=== PATIENT | male | born 1980 | race African-American/Black ===

== ENCOUNTER 2019-01-18 19:06 | Emergency (ER) | payer SELFPAY ==
[~2019-01-18] VITALS: Ht 175.3 cm; Wt 70.3 kg
[2019-01-18 19:21] VITALS: BP 111/65
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
[2019-01-18] MEDS ORDERED: KETOROLAC TROMETHAMINE INJ 60 MG/2 ML VIAL IM ONE ×2 (19:42→20:00)
== END 2019-01-18 20:04 | disposition home or self-care (01) ==
LOC: ER 19:10
DX: S16.1XXA Strain of muscle, fascia and tendon at neck level, initial encounter (principal); S20.211A Contusion of right front wall of thorax, initial encounter; V49.59XA Passenger injured in collision with other motor vehicles in traffic accident, initial encounter; Y93.89 Activity, other specified; Y92.488 Other paved roadways as the place of occurrence of the external cause; Y99.8 Other external cause status
CPT/HCPCS: 96372; 99283; J1885

== ENCOUNTER 2020-01-16 14:45 | Emergency (ER) | payer MEDICAID, OTHER ==
[~2020-01-16] VITALS: Ht 175.3 cm; Wt 72.6 kg
[2020-01-16 14:51] VITALS: BP 143/80
== END 2020-01-16 15:13 | disposition home or self-care (01) ==
LOC: ER 14:50
DX: R43.8 Other disturbances of smell and taste (principal); J45.909 Unspecified asthma, uncomplicated; Z91.018 Allergy to other foods; Z91.013 Allergy to seafood; Z87.898 Personal history of other specified conditions

== ENCOUNTER 2020-09-16 14:18 | Emergency (ER) | payer OTHER ==
[~2020-09-16] VITALS: Ht 175.3 cm; Wt 72.6 kg
[2020-09-16 14:31] VITALS: BP 130/79
--- NOTE | 2020-09-16 15:02 | NUR ---
Patient discharged to home in stable condition. Written and verbal after care instructions given. Patient verbalizes understanding of instruction.
== END 2020-09-16 15:02 | disposition home or self-care (01) ==
LOC: ER 14:22
DX: R50.9 Fever, unspecified (principal); R05 Cough; R06.02 Shortness of breath; Z20.828 Contact with and (suspected) exposure to other viral communicable diseases; J45.909 Unspecified asthma, uncomplicated; Z91.018 Allergy to other foods; Z91.013 Allergy to seafood

== ENCOUNTER 2021-01-10 05:23 | Emergency (ER) | payer OTHER ==
[~2021-01-10] VITALS: Ht 175.3 cm; Wt 72.6 kg
--- NOTE | 2021-01-10 05:30 | NUR ---
pt bibself c/o sob, worse when laying flat. Pt aaox4 breathing evenly and unlabored. Pt skin warm, dry, and intact. Upon assessment pt has expiratory wheezes in rt and left lower lung lobes. Pt vss. Pt attached to monitor and pox. pt given blanket and call light within reach.
--- NOTE | 2021-01-10 06:09 | NUR ---
xray at bedside
[2021-01-10] MEDS ORDERED: ALBUTEROL FS 2.5 MG/3 ML VIAL.NEB ONE (06:12)
[2021-01-10] MEDS ORDERED: predniSONE 20 MG TABLET ONE (06:12)
--- NOTE | 2021-01-10 06:15 | NUR ---
rt at bedside
[2021-01-10] MEDS ORDERED: ALBUTEROL FS 2.5 MG/3 ML VIAL.NEB CONTNEB ONE (06:30)
[2021-01-10] MEDS ORDERED: predniSONE 20 MG TABLET PO ONE (06:30)
[2021-01-10] MEDS ORDERED: PRED20TA PO (06:33)
[2021-01-10] MEDS ORDERED: ALBU8.5H8 INH (06:33)
--- NOTE | 2021-01-10 06:47 | NUR ---
Patient discharged to home in stable condition. Written and verbal after care instructions given. Patient verbalizes understanding of instruction. Pt ambulatory with a steady gait
[2021-01-10 06:52] VITALS: BP 125/72
== END 2021-01-10 06:47 | disposition home or self-care (01) ==
LOC: ER 05:24
DX: J45.901 Unspecified asthma with (acute) exacerbation (principal); Z79.899 Other long term (current) drug therapy
CPT/HCPCS: 71045; 94640 ×2; 99284; J7512

== ENCOUNTER 2021-03-28 00:49 | Emergency (ER) | payer OTHER ==
[~2021-03-28] VITALS: Ht 175.3 cm; Wt 72.6 kg
[~2021-03-28 00:49] MED LIST: ALBU8.5H8 INH; PRED20TA PO
--- NOTE | 2021-03-28 01:00 | NUR ---
PATIENT BIBS FOR C/O WHEEZING FOR THE PAST 2 WEEKS. PATIENT IS A/O X 4, RR EVEN AND UNLABORED, NO SIGNS OF SOB NOTED. PATIENT IS STABLE ON ROOM AIR. PATIENT CONNCETED TO SHIPPING PROCESSOR AND POX. WILL CONTINUE TO MONITOR.
[2021-03-28 01:13] LABS: BASOPHILS % (AUTO) 0.3 % (0.0-2.0); EOSINOPHILS % (AUTO) 5.8 % (0.0-6.0); HEMATOCRIT 43 % (39-51); HEMOGLOBIN 14.3 g/dL (13.5-17.5); LYMPHOCYTES # (AUTO) 3.1 K/uL (0.8-4.8); LYMPHOCYTES % (AUTO) 48.1 % (20.0-44.0); MEAN CORPUSCULAR HGB CONC 34 g/dl (31.0-36.0); MEAN CORPUSCULAR VOLUME 95 fL (80-96); MONOCYTES # (AUTO) 0.5 K/uL (0.1-1.30); MONOCYTES % (AUTO) 7.9 % (2.0-12.0); NEUTROPHILS # (AUTO) 2.4 K/uL (1.8-8.9); NEUTROPHILS % (AUTO) 37.9 % (43.0-81.0); PLATELET COUNT (AUTO) 188 K/uL (150-450); RED BLOOD CELL COUNT(AUTO) 4.48 MIL/uL (4.5-6.0); WHITE BLOOD COUNT (AUTO) 6.4 K/uL (4.3-11.0)
--- NOTE | 2021-03-28 01:18 | NUR ---
X RAY AT BEDSIDE
[2021-03-28] MEDS ORDERED: IPRATROPIUM NEB FS 0.5 MG/2.5 ML AMPUL.NEB ONE (01:22)
[2021-03-28] MEDS ORDERED: ALBUTEROL FS 2.5 MG/3 ML VIAL.NEB ONE (01:22)
[2021-03-28] MEDS ORDERED: IPRATROPIUM NEB FS 0.5 MG/2.5 ML AMPUL.NEB NEB ONE (01:30)
[2021-03-28] MEDS ORDERED: ALBUTEROL FS 2.5 MG/3 ML VIAL.NEB NEB ONE (01:30)
[2021-03-28 01:33] LABS: CALCIUM, SERUM 8.4 mg/dL (8.5-10.1); CHLORIDE 105 mmol/L (98-107); CREATININE 1.2 mg/dL (0.6-1.3); GLUCOSE 98 mg/dL (74-106); POTASSIUM 3.7 mmol/L (3.5-5.1); SODIUM SERUM 138 mmol/L (136-145)
[2021-03-28 01:41] LABS: CARBON DIOXIDE 24 mmol/L (21-32)
[2021-03-28 01:42] LABS: UREA NITROGEN, BLOOD 17 mg/dL (7-18)
--- NOTE | 2021-03-28 01:50 | NUR ---
DR SOLITARIO ON THE PHONE WITH DR ESCAMILLA FOR CARDIAC CONSULT
--- NOTE | 2021-03-28 01:52 | NUR ---
CALLED LAB FOR COVID SWAB.
[2021-03-28] MEDS ORDERED: ENOXAPARIN SODIUM 80 MG/0.8 ML DISP.SYRIN SQ ONE ×2 (02:30→02:37)
--- NOTE | 2021-03-28 02:49 | NUR ---
DR SOLITARIO AT BED SIDE SPEAKING TO THE PT HE'S WILLING TO LEAVE AMA
[2021-03-28 03:01] VITALS: BP 122/70
--- NOTE | 2021-03-28 03:02 | NUR ---
Patient does not wish to proceed with medical care recommended by Dr. Meng. Patient given information related to possible complications, up to and including , which could occur as a result of leaving the hospital at this time. Patient verbalizes understanding of risks involved due to leaving against medical advice. IV Access removed. Patient has signed AMA form.
== END 2021-03-28 03:06 | disposition left against medical advice (07) ==
LOC: ER 00:52
DX: J45.901 Unspecified asthma with (acute) exacerbation (principal); R94.31 Abnormal electrocardiogram [ECG] [EKG]; R05 Cough; Z20.822 Contact with and (suspected) exposure to COVID-19; Z91.018 Allergy to other foods; Z91.013 Allergy to seafood
CPT/HCPCS: 36415; 71045; 80048; 83880; 84484; 85025; 87426; 93005 ×2; 94640; 96372; 99291; C9803; J1650

== ENCOUNTER 2021-04-22 03:20 | Emergency (ER) | payer OTHER ==
[~2021-04-22] VITALS: Ht 175.3 cm; Wt 72.6 kg
--- NOTE | 2021-04-22 03:25 | NUR ---
PATIENT BIBSELF, C/O SOB AND WHEEZING SINCE YESTERADY. PATIENT USES ALBUTEROL INHALER WITH NO RELIEF. PATIENT IS A/O X 4, RR EVEN AND UNLABORED, NO SIGNS OF SOB NOTED. PATIENT CONNECTED TO MONITOR.
[2021-04-22] MEDS ORDERED: PRED50TA PO (03:37)
[2021-04-22] MEDS ORDERED: AZIT250T13 PO (03:37)
[2021-04-22] MEDS ORDERED: IPRA3AMP23 IH (03:37)
--- NOTE | 2021-04-22 03:39 | NUR ---
RT CALLED FOR Tx
[2021-04-22] MEDS ORDERED: ALBUTEROL FS 2.5 MG/3 ML VIAL.NEB ONE ×2 (03:42→04:10)
[2021-04-22] MEDS ORDERED: IPRATROPIUM NEB FS 0.5 MG/2.5 ML AMPUL.NEB ONE ×2 (03:42→04:10)
[2021-04-22] MEDS ORDERED: predniSONE 20 MG TABLET ONE (03:45)
[2021-04-22] MEDS ORDERED: AZITHROMYCIN 250 MG TABLET ONE (03:45)
[2021-04-22] MEDS ORDERED: IPRATROPIUM NEB FS 0.5 MG/2.5 ML AMPUL.NEB NEB ONE ×2 (04:00→04:30)
[2021-04-22] MEDS ORDERED: predniSONE 20 MG TABLET PO ONE (04:00)
[2021-04-22] MEDS ORDERED: AZITHROMYCIN 250 MG TABLET PO ONE (04:00)
[2021-04-22] MEDS ORDERED: ALBUTEROL FS 2.5 MG/3 ML VIAL.NEB NEB ONE ×2 (04:00→04:30)
--- NOTE | 2021-04-22 04:47 | NUR ---
Patient discharged to home in stable condition. RX and Written and verbal after care instructions given. Patient verbalizes understanding of instruction.
[2021-04-22 04:48] VITALS: BP 124/69
== END 2021-04-22 04:48 | disposition home or self-care (01) ==
LOC: ER 03:28
DX: J45.901 Unspecified asthma with (acute) exacerbation (principal); Z60.2 Problems related to living alone; Z79.899 Other long term (current) drug therapy
CPT/HCPCS: 93005; 94640 ×2; 99291; J7512

== ENCOUNTER 2022-02-13 02:47 | Emergency (ER) | payer OTHER ==
[~2022-02-13] VITALS: Ht 175.3 cm; Wt 74.8 kg
[~2022-02-13 02:47] MED LIST changes: +AZIT250T13 PO; +IPRA3AMP23 IH; +PRED50TA PO
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
[2022-02-13] MEDS ORDERED: LIDOCAINE HCL/MPF 1% 30 ML VIAL IJ ONE (03:49)
[2022-02-13] MEDS ORDERED: IBUPROFEN 400 MG TABLET ONE (03:51)
--- NOTE | 2022-02-13 03:54 | NUR ---
EMT AT PT'S BEDSIDE CLEANING LAC TO LOWER LIP
--- NOTE | 2022-02-13 03:57 | NUR ---
DR. INGE LAIRD AT PT'S BEDSIDE FOR WOUND CARE
[2022-02-13] MEDS ORDERED: IBUPROFEN 400 MG TABLET PO ONE (04:00)
--- NOTE | 2022-02-13 04:17 | NUR ---
DPatient discharged to home in stable condition. Written and verbal after care instructions given. Patient verbalizes understanding of instruction.
[2022-02-13 04:26] VITALS: BP 114/67
== END 2022-02-13 04:20 | disposition home or self-care (01) ==
LOC: ER 02:49
DX: S01.511A Laceration without foreign body of lip, initial encounter (principal); J45.909 Unspecified asthma, uncomplicated; Z91.018 Allergy to other foods; Z91.013 Allergy to seafood; Z60.2 Problems related to living alone; Z79.899 Other long term (current) drug therapy; V89.2XXA Person injured in unspecified motor-vehicle accident, traffic, initial encounter; Y93.89 Activity, other specified; Y92.89 Other specified places as the place of occurrence of the external cause; Y99.8 Other external cause status
CPT/HCPCS: 12011; 99282; J3490